=== PATIENT | female | born 1970 | race Two or more races ===

== ENCOUNTER → 2017-04-27 07:27 | Outpatient (CLI) | payer OTHER ==
[~2017-04-27 07:27] MED LIST: ADVAIR 2501 DISK W/1 IH; BACTROBAN OINT22 GM TP; BREO ELLIPTA 21 EACH IH; COZAAR25 MG; DEMEBORO OTIC DROPS OTIC; FLOVENT DISKUS50 MCG IH; LOSARTAN POTASS25 MG PO; METHOCARBAMOL500 MG PO; MULTIVITAMIN1 CAP PO; MUPIROCIN15 GM TP; NYSTATIN-TRIAMC15 GM TOP; NYSTATIN-TRIAMC30 GM TP; PROVENTIL0.5 ML/2.5 IH; PROVENTIL3 ML/2.5 M IH; SINGULAIR10 MG; SINGULAIR10 MG PO; SINGULAIR4 MG PO; VENTOLIN HFA18 GM; VENTOLIN HFA18 GM BC; VENTOLIN HFA18 GM IH; ZITHROMAX TRI-500 MG PO; ZOVIRAX5 GM TP; ZYRTEC1 MG/ML PO; ZYRTEC10 MG PO
== END | disposition home or self-care (01) ==
LOC: LAB 07:27 → EDBD 07:27
DX: D50.9 Iron deficiency anemia, unspecified (principal); E83.51 Hypocalcemia; E03.8 Other specified hypothyroidism; N39.0 Urinary tract infection, site not specified; N92.0 Excessive and frequent menstruation with regular cycle

== ENCOUNTER 2017-04-27 08:22 | Outpatient (CLI) | payer OTHER ==
[~2017-04-27 08:22] MED LIST changes: -BREO ELLIPTA 21 EACH IH; -FLOVENT DISKUS50 MCG IH
[2017-05-04] MEDS ORDERED: FLOVENT DISKUS50 MCG IH (09:11)
[2017-05-04] MEDS ORDERED: BREO ELLIPTA 21 EACH IH (09:11)
== END 2017-04-27 14:22 | disposition home or self-care (01) ==
LOC: SONOGRAMA 08:22 → EDBD 08:22 → SONOGRAMA 14:22
DX: N92.0 Excessive and frequent menstruation with regular cycle (principal)

== ENCOUNTER → 2017-05-03 12:47 | Outpatient (CLI) | payer OTHER ==
[~2017-05-03 12:47] MED LIST changes: +BREO ELLIPTA 21 EACH IH; +FLOVENT DISKUS50 MCG IH
== END | disposition home or self-care (01) ==
LOC: EDBD 12:47 → RAD 12:47
DX: Z13.6 Encounter for screening for cardiovascular disorders (principal)

== ENCOUNTER 2017-05-05 06:02 | Day surgery (SDC) | payer OTHER | END 2017-05-05 11:20 | disposition home or self-care (01) | LOC: EDBD → CIR.AMB 06:02 | DX: N84.0 Polyp of corpus uteri (principal) ==

== ENCOUNTER 2017-06-19 13:51 | Outpatient (CLI) | payer OTHER | END 2017-06-19 13:55 | disposition home or self-care (01) | LOC: LAB 13:51 | DX: D64.89 Other specified anemias (principal) ==

== ENCOUNTER 2017-07-25 11:38 | Outpatient (CLI) | payer OTHER | END 2017-07-25 12:07 | disposition home or self-care (01) | LOC: RAD 11:38 | DX: M25.473 Effusion, unspecified ankle (principal) ==

== ENCOUNTER → 2017-07-25 | Outpatient (CLI) | payer OTHER | END | disposition home or self-care (01) | LOC: PPHC 09:52 | DX: R60.1 Generalized edema (principal) ==

== ENCOUNTER → 2017-07-26 | Outpatient (CLI) | payer OTHER | END | disposition home or self-care (01) | LOC: LAB 07:35 | DX: M25.473 Effusion, unspecified ankle (principal); R42 Dizziness and giddiness; R53.1 Weakness ==

== ENCOUNTER → 2017-07-27 | Emergency (ER) | payer OTHER ==
[~2017-07-27] VITALS: Ht 157.5 cm; Wt 72.1 kg
== END | disposition home or self-care (01) ==
LOC: ER 20:30
DX: S51.821A Laceration with foreign body of right forearm, initial encounter (principal); W45.8XXA Other foreign body or object entering through skin, initial encounter; Y93.89 Activity, other specified; Y92.89 Other specified places as the place of occurrence of the external cause; Y99.8 Other external cause status

== ENCOUNTER → 2017-11-15 | Emergency (ER) | payer OTHER ==
[~2017-11-15] VITALS: Ht 160 cm; Wt 72.6 kg
== END | disposition left against medical advice (07) ==
LOC: ER 16:05
DX: Z53.20 Procedure and treatment not carried out because of patient's decision for unspecified reasons (principal)

== ENCOUNTER 2017-11-17 16:25 | Outpatient (CLI) | payer OTHER | END 2017-11-17 16:26 | disposition home or self-care (01) | LOC: LAB 16:25 | DX: I10 Essential (primary) hypertension (principal); Z13.1 Encounter for screening for diabetes mellitus; Z12.11 Encounter for screening for malignant neoplasm of colon; Z78.0 Asymptomatic menopausal state; D50.8 Other iron deficiency anemias; N39.0 Urinary tract infection, site not specified; E83.51 Hypocalcemia; E78.2 Mixed hyperlipidemia; E03.8 Other specified hypothyroidism ==

== ENCOUNTER 2017-12-12 10:33 | Outpatient (CLI) | payer OTHER | END 2017-12-12 12:44 | disposition home or self-care (01) | LOC: LAB 10:33 | DX: Z11.3 Encounter for screening for infections with a predominantly sexual mode of transmission (principal) ==

== ENCOUNTER 2018-02-05 13:43 | Outpatient (CLI) | payer OTHER | END 2018-02-05 13:46 | disposition home or self-care (01) | LOC: MAMO-SONO 13:43 | DX: Z12.31 Encounter for screening mammogram for malignant neoplasm of breast (principal) ==

== ENCOUNTER 2018-04-16 10:05 | Emergency (ER) | payer OTHER ==
[~2018-04-16] VITALS: Ht 160 cm; Wt 77.1 kg
[2018-04-16] MEDS ORDERED: COZAAR50 MG (10:32)
== END 2018-04-16 12:57 | disposition home or self-care (01) ==
LOC: ER 10:05
DX: N23 Unspecified renal colic (principal); K80.80 Other cholelithiasis without obstruction; K57.30 Diverticulosis of large intestine without perforation or abscess without bleeding

== ENCOUNTER 2019-05-01 06:54 | Outpatient (CLI) | payer OTHER ==
[~2019-05-01 06:54] MED LIST changes: +COZAAR50 MG
== END 2019-05-01 06:59 | disposition home or self-care (01) ==
LOC: LAB 06:54
DX: J11.1 Influenza due to unidentified influenza virus with other respiratory manifestations (principal); I10 Essential (primary) hypertension; E78.49 Other hyperlipidemia; E55.9 Vitamin D deficiency, unspecified; R42 Dizziness and giddiness; R10.2 Pelvic and perineal pain

== ENCOUNTER 2019-06-06 09:13 | Outpatient (CLI) | payer OTHER | END 2019-06-06 10:00 | disposition home or self-care (01) | LOC: RAD 09:13 | DX: M25.561 Pain in right knee (principal); M25.551 Pain in right hip; M25.521 Pain in right elbow; M25.562 Pain in left knee ==

== ENCOUNTER 2019-08-16 09:23 | Outpatient (CLI) | payer OTHER | END 2019-08-16 09:33 | disposition home or self-care (01) | LOC: MAMO-SONO 09:23 → SONOGRAMA 09:23 → MAMO-SONO 09:33 | DX: Z12.31 Encounter for screening mammogram for malignant neoplasm of breast (principal); Z87.898 Personal history of other specified conditions; Z12.39 Encounter for other screening for malignant neoplasm of breast ==

== ENCOUNTER → 2019-09-11 | Outpatient (CLI) | payer OTHER | END | disposition home or self-care (01) | LOC: SONOGRAMA 09-10 13:09 | PROVIDERS: ATTEND Specialist | DX: R10.2 Pelvic and perineal pain (principal) ==

== ENCOUNTER 2019-11-20 15:13 | Outpatient (CLI) | payer OTHER | END 2019-11-20 15:30 | disposition home or self-care (01) | LOC: LAB 15:13 → CERTIFICAD 15:13 → LAB 15:30 | PROVIDERS: ATTEND General Practice | DX: Z11.1 Encounter for screening for respiratory tuberculosis (principal) ==

== ENCOUNTER → 2020-03-25 16:09 | Outpatient (CLI) | payer OTHER | END | disposition home or self-care (01) | LOC: LAB 16:09 | PROVIDERS: ATTEND General Practice | DX: Z03.818 Encounter for observation for suspected exposure to other biological agents ruled out (principal); R05 Cough; R50.9 Fever, unspecified ==

== ENCOUNTER 2020-03-31 14:25 | Outpatient (CLI) | payer OTHER | END 2020-03-31 18:20 | disposition home or self-care (01) | LOC: PPH VACUNA 14:25 | DX: Z23 Encounter for immunization (principal) ==

== ENCOUNTER → 2020-08-12 06:33 | Outpatient (CLI) | payer OTHER ==
[~2020-08-12 06:33] MED LIST changes: +CYCLOBENZAPRINE10 MG PO; +NABUMETONE750 MG PO
== END | disposition home or self-care (01) ==
LOC: LAB 06:33
PROVIDERS: ATTEND Internal Medicine Pulmonary Disease
DX: D64.89 Other specified anemias (principal); N39.0 Urinary tract infection, site not specified; R10.9 Unspecified abdominal pain; E03.8 Other specified hypothyroidism; E78.5 Hyperlipidemia, unspecified; E55.9 Vitamin D deficiency, unspecified; E11.9 Type 2 diabetes mellitus without complications; R73.9 Hyperglycemia, unspecified; M19.90 Unspecified osteoarthritis, unspecified site; J45.30 Mild persistent asthma, uncomplicated; R05 Cough

== ENCOUNTER 2020-10-15 08:35 | Outpatient (CLI) | payer OTHER ==
[2020-10-21] MEDS ORDERED: CYCLOBENZAPRINE10 MG PO (11:42)
== END 2020-10-15 08:40 | disposition home or self-care (01) ==
LOC: RAD 08:35
PROVIDERS: ATTEND Physical Medicine & Rehabilitation
DX: M54.2 Cervicalgia (principal); M54.6 Pain in thoracic spine; M25.562 Pain in left knee; M54.5 Low back pain

== ENCOUNTER 2020-11-25 10:55 | Outpatient (CLI) | payer OTHER | END 2020-11-25 11:04 | disposition home or self-care (01) | LOC: RAD 10:55 | PROVIDERS: ATTEND General Practice | DX: R07.89 Other chest pain (principal) ==

== ENCOUNTER 2020-11-30 14:26 | Outpatient (CLI) | payer OTHER | END 2020-11-30 15:00 | disposition home or self-care (01) | LOC: LAB 14:26 | PROVIDERS: ATTEND Emergency Medicine Pediatric Emergency Medicine | DX: Z03.818 Encounter for observation for suspected exposure to other biological agents ruled out (principal) ==

== ENCOUNTER 2021-01-08 08:00 | Outpatient (CLI) | payer OTHER | END 2021-01-08 08:30 | disposition home or self-care (01) | LOC: PPH VACUNA 08:00 | PROVIDERS: ATTEND Emergency Medicine Pediatric Emergency Medicine | DX: Z23 Encounter for immunization (principal) ==

== ENCOUNTER 2021-02-11 13:34 | Outpatient (CLI) | payer OTHER ==
[2021-02-12] MEDS ORDERED: TRELEGY ELLIPT1 EACH IH (14:43)
[2021-02-12] MEDS ORDERED: KETO10TA2 PO (16:46)
[2021-02-12] MEDS ORDERED: [UNRECOGNIZED DRUG - OTHER] PO (16:46)
[2021-02-12] MEDS ORDERED: ATACAND HCT 161 EACH PO (16:46)
== END 2021-02-11 13:41 | disposition home or self-care (01) ==
LOC: MAMO-SONO 13:34
PROVIDERS: ATTEND Specialist
DX: N64.89 Other specified disorders of breast (principal); Z12.31 Encounter for screening mammogram for malignant neoplasm of breast

== ENCOUNTER → 2021-02-12 | Emergency (ER) | payer OTHER ==
[~2021-02-12] VITALS: Ht 160 cm; Wt 81.6 kg
[~2021-02-12] MED LIST changes: +ATACAND HCT 161 EACH PO; +KETO10TA2 PO; +TRELEGY ELLIPT1 EACH IH; +[UNRECOGNIZED DRUG - OTHER] PO
== END | disposition home or self-care (01) ==
LOC: ER 14:30
DX: S63.501A Unspecified sprain of right wrist, initial encounter (principal); X58.XXXA Exposure to other specified factors, initial encounter; Y99.0 Civilian activity done for income or pay; J45.998 Other asthma; I10 Essential (primary) hypertension

== ENCOUNTER 2021-02-24 08:39 | Outpatient (CLI) | payer OTHER | END 2021-02-24 09:00 | disposition home or self-care (01) | LOC: SONOGRAMA 08:39 | PROVIDERS: ATTEND General Practice | DX: M25.521 Pain in right elbow (principal); M25.531 Pain in right wrist ==

== ENCOUNTER 2021-03-16 09:06 | Outpatient (CLI) | payer OTHER | END 2021-03-16 09:15 | disposition home or self-care (01) | LOC: RAD 09:06 | PROVIDERS: ATTEND Specialist | DX: D25.9 Leiomyoma of uterus, unspecified (principal) ==

== ENCOUNTER → 2021-04-21 11:43 | Outpatient (CLI) | payer OTHER | END | disposition home or self-care (01) | LOC: LAB 11:43 | PROVIDERS: ATTEND Preventive Medicine Occupational Medicine | DX: U07.1 COVID-19 (principal) ==

== ENCOUNTER → 2021-07-02 06:43 | Outpatient (CLI) | payer OTHER | END | disposition home or self-care (01) | LOC: LAB 06:43 | PROVIDERS: ATTEND General Practice | DX: E78.5 Hyperlipidemia, unspecified (principal); Z00.00 Encounter for general adult medical examination without abnormal findings; E55.9 Vitamin D deficiency, unspecified; N39.0 Urinary tract infection, site not specified; R42 Dizziness and giddiness; R79.0 Abnormal level of blood mineral; R57.9 Shock, unspecified; R10.2 Pelvic and perineal pain ==

== ENCOUNTER → 2021-10-08 | Emergency (ER) | payer OTHER | END | disposition home or self-care (01) | LOC: ER 16:12 | DX: K80.20 Calculus of gallbladder without cholecystitis without obstruction (principal); E87.6 Hypokalemia; Z88.0 Allergy status to penicillin ==

== ENCOUNTER 2021-11-10 06:41 | Day surgery (SDC) | payer OTHER ==
[~2021-11-10] VITALS: Ht 160 cm; Wt 78.0 kg
[~2021-11-10 06:41] MED LIST changes: +SYMBICORT 16010.2 GM IH
[2021-11-10] MEDS ORDERED: PERCOCET 5-3251 EACH PO (10:39)
== END 2021-11-10 13:20 | disposition home or self-care (01) ==
LOC: CIR.AMB 06:41
PROVIDERS: ATTEND Surgery
DX: K81.1 Chronic cholecystitis (principal); Z20.822 Contact with and (suspected) exposure to COVID-19; Z88.0 Allergy status to penicillin; I10 Essential (primary) hypertension; J45.909 Unspecified asthma, uncomplicated; E66.9 Obesity, unspecified

== ENCOUNTER 2021-12-15 15:52 | Outpatient (CLI) | payer OTHER ==
[~2021-12-15 15:52] MED LIST changes: +PERCOCET 5-3251 EACH PO
== END 2021-12-15 16:01 | disposition home or self-care (01) ==
LOC: RAD 15:52
PROVIDERS: ATTEND General Practice
DX: M25.571 Pain in right ankle and joints of right foot (principal); M79.671 Pain in right foot; M99.01 Segmental and somatic dysfunction of cervical region; M99.02 Segmental and somatic dysfunction of thoracic region; M99.03 Segmental and somatic dysfunction of lumbar region

== ENCOUNTER 2021-12-28 14:11 | Outpatient (CLI) | payer OTHER | END 2021-12-28 14:21 | disposition home or self-care (01) | LOC: PPH VACUNA 14:11 | PROVIDERS: ATTEND Emergency Medicine Pediatric Emergency Medicine | DX: Z23 Encounter for immunization (principal) ==

== ENCOUNTER 2022-04-13 08:39 | Outpatient (CLI) | payer OTHER | END 2022-04-13 08:44 | disposition home or self-care (01) | LOC: LAB 08:39 | PROVIDERS: ATTEND General Practice | DX: N39.0 Urinary tract infection, site not specified (principal) ==

== ENCOUNTER 2022-04-14 13:46 | Emergency (ER) | payer OTHER ==
[~2022-04-14] VITALS: Ht 162.6 cm; Wt 77.1 kg
== END 2022-04-14 19:44 | disposition home or self-care (01) ==
LOC: ER 13:46
DX: R10.9 Unspecified abdominal pain (principal); Z88.0 Allergy status to penicillin

== ENCOUNTER 2022-05-12 11:01 | Outpatient (CLI) | payer OTHER | END 2022-05-12 11:20 | disposition home or self-care (01) | LOC: MAMO-SONO 11:01 | PROVIDERS: ATTEND General Practice | DX: N64.4 Mastodynia (principal) ==